=== PATIENT | male | born 1965 | race Caucasian/White ===

== ENCOUNTER 2017-02-21 12:56 | Inpatient (IN) | payer OTHER ==
[~2017-02-21] VITALS: Ht 182.9 cm; Wt 55.8 kg
[~2017-02-21 12:56] MED LIST: ARIP2TAB9 PO; DIVA125T2 GT; GABA-532 PO; TRAZ-144 PO
--- NOTE | 2017-02-21 13:00 | NUR ---
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 BS-[id number], NAD NOTED, VSS, RESP EVEN AND UNLABORED. PT PUT ON MONITOR AND HOSPITAL GOWN. C-COLLAR APPLIED. WAITING FOR MD LYMAN Addendum: 02/21/17 at 1501 by JUAN CARLOS NO C-COLLAR APPLIED
[2017-02-21] MEDS ORDERED: IV NS 0.9% 500 ML BAG IV ONE (13:30)
[2017-02-21 13:41] LABS: BASOPHILS % (AUTO) 0.7 % (0.0-2.0); EOSINOPHILS % (AUTO) 0.1 % (0.0-6.0); HEMATOCRIT 41 % (39-51); HEMOGLOBIN 13.4 g/dL (13.5-17.5); LYMPHOCYTES # (AUTO) 0.3 /CMM (0.8-4.8); MEAN CORPUSCULAR HEMOGLOBIN 30 PG (26.0-33.0); MEAN CORPUSCULAR HGB CONC 33 g/dl (31.0-36.0); MEAN CORPUSCULAR VOLUME 92 fL (80-96); MONOCYTES # (AUTO) 0.2 /CMM (0.1-1.30); MONOCYTES % (AUTO) 9.2 % (2.0-12.0); NEUTROPHILS # (AUTO) 1.7 /CMM (1.8-8.9); PLATELET COUNT (AUTO) 234 /CMM (150-450); RDW COEFFICIENT OF VARIATION 16.9 (11.5-15.0); RED BLOOD CELL COUNT(AUTO) 4.43 MIL/uL (4.5-6.0); WHITE BLOOD COUNT (AUTO) 2.2 K/uL (4.3-11.0)
[2017-02-21 13:55] LABS: CALCIUM, SERUM 8.8 mg/dL (8.5-10.1); CARBON DIOXIDE 28 mmol/L (21-32); CHLORIDE 103 mmol/L (98-107); CREATININE 0.5 mg/dL (0.6-1.3); GLUCOSE 97 mg/dL (74-106); POTASSIUM 3.6 mmol/L (3.5-5.1); SODIUM SERUM 141 mmol/L (136-145); UREA NITROGEN, BLOOD 1 mg/dL (7-18)
[2017-02-21 13:58] LABS: TROPONIN I < 0.017 ng/mL (0.00-0.056)
[2017-02-21 14:06] LABS: ALANINE AMINOTRANSFERASE 18 U/L (12-78); ALBUMIN 3.4 g/dL (3.4-5.0); ALKALINE PHOSPHATASE 67 U/L (46-116); ASPARTATE AMINOTRANSFERASE 22 U/L (15-37); BILIRUBIN,DIRECT 0.1 mg/dL (0.0-0.2); BILIRUBIN,TOTAL 0.3 mg/dL (0.2-1.0); TOTAL PROTEIN, SERUM 6.6 g/dL (6.4-8.2)
[2017-02-21 14:12] LABS: INR 1.07 (0.87-1.13); PROTHROMBIN TIME 11.1 SECS (9.5-12.7)
--- NOTE | 2017-02-21 14:20 | NUR ---
XRAY AT BS
--- NOTE | 2017-02-21 14:28 | NUR ---
PAGED DR ORTIZ
[2017-02-21] MEDS ORDERED: IV NS 0.9% 1,000 ML BAG IV ONE ×2 (14:30→17:00)
[2017-02-21] MEDS ORDERED: LEVOFLOXACIN 750 MG /D5W 150ML 150 ML IV ONE ×2 (14:30→14:34)
[2017-02-21] MEDS ORDERED: IV NS 0.9% 250 ML IV ONE (14:31)
[2017-02-21] MEDS ORDERED: IOHEXOL-350 100 ML VIAL IV ONE (14:31)
[2017-02-21 14:40] LABS: LYMPHOCYTES % (MANUAL) 16 % (16-48); MONOCYTES % (MANUAL) 12 % (0-11.0); NEUTROPHILS % (MANUAL) 72 (42-76)
--- NOTE | 2017-02-21 15:00 | NUR ---
MS RN OPENING NOTES RECEIVED PT FROM ER NURSE IN STABLE CONDITION .PT IS A/O X4. NO SOB OR SIGNS OF DISTRESS NOTED BREATHING IS EVEN AND UNLABORED. PT IS ON RA AND SATING WELL AT 98%. HE DENIES ANY PAIN AT THIS TIME. BELONGINGS VERIFIED BY BEAM DYER RECESSED VAT. PT WAS BE ADMITTED BY DR. ORTIZ FOR POSSIBLE SEPSIS/PNA. WILL BEGIN ADMISSION PROCESS AND AWAIT FOR FURTHER ORDERS FROM THE MD
--- NOTE | 2017-02-21 15:00 | NUR ---
Cuca awan in [facility] - 02/21/17 at 1501 by JUAN CARLOS NO C-COLLAR WAS APPLIED
[2017-02-21] MEDS ORDERED: MORP30TA7 PO (15:44)
[2017-02-21] MEDS ORDERED: TBO-FILGRASTIM 300 MCG/0.5 ML SYRINGE SQ SCH (16:00)
[2017-02-21] MEDS ORDERED: ACETAMINOPHEN 325 MG TABLET PO PRN (17:00)
[2017-02-21] MEDS ORDERED: VANCOMYCIN 1 GM in IV D5W 250 ML IV ONE (17:00)
[2017-02-21] MEDS ORDERED: LORAZEPAM INJ 2 MG/ML VIAL IVP PRN (17:00)
[2017-02-21] MEDS ORDERED: ONDANSETRON HCL/PF 4 MG/2 ML VIAL IVP PRN (17:00)
[2017-02-21 17:04] VITALS: BP 100/64
[2017-02-21] MEDS ORDERED: FEE PK DOSING 1 MIN EA MC ONE (17:38)
--- NOTE | 2017-02-21 19:04 | NUR ---
MS RN NOTES REPORT GIVEN TO SIDNEY FOR NBA PT WAS TRANSFERRED UNDER ACLS PROTOCOL TO ROOM 306. ALL BELONGINGS WERE TAKEN WITH PT.
[2017-02-21 20:00] VITALS: BP 102/71
[2017-02-21] MEDS: MORPHINE SULFATE INJ 2 MG/ML DISP.SYRIN IV PRN (20:50)
[2017-02-21] MEDS: PIPERACILLIN /TAZOBACTAM 3.375 G in IV D5W 50 ML IV SCH (20:54)
[2017-02-22 00:29] VITALS: BP 124/75
[2017-02-22] MEDS: VANCOMYCIN 1 GM in IV D5W 250 ML IV SCH ×3 (02:00→18:18)
[2017-02-22] MEDS: MORPHINE SULFATE INJ 2 MG/ML DISP.SYRIN IV PRN ×5 (02:07→21:35)
[2017-02-22] MEDS: PIPERACILLIN /TAZOBACTAM 3.375 G in IV D5W 50 ML IV SCH ×4 (03:00→17:06)
[2017-02-22 04:00] VITALS: BP 98/57
--- NOTE | 2017-02-22 05:20 | NUR ---
Patient slept thru the night. Changing his own position thru the night. Morphine 2mg for pain given times 2 per his request and effectiv for abd pain. Colostomy is working soft brown mushy stool. Afebrile
[2017-02-22 06:49] VITALS: BP 106/59
[2017-02-22 07:21] LABS: INR 1.08 (0.87-1.13); PROTHROMBIN TIME 11.2 SECS (9.5-12.7)
[2017-02-22 07:26] LABS: ALBUMIN 3.2 g/dL (3.4-5.0); CALCIUM, SERUM 8.8 mg/dL (8.5-10.1); CREATININE 0.6 mg/dL (0.6-1.3); POTASSIUM 3.2 mmol/L (3.5-5.1); TOTAL PROTEIN, SERUM 6.4 g/dL (6.4-8.2)
[2017-02-22 07:31] LABS: CREATINE KINASE MB 0.5 ng/mL (0-3.6)
--- NOTE | 2017-02-22 07:46 | NUR ---
LAST TURNER: INITIAL NOTE RECEIVED PT A/OX4. ON TELE MONITOR WITH SINUS RHYTHM OF 53 BPM. HAS COLOSTOMY. USES URINAL. SKIN INTACT. ON SOFT DIET. RT ARM # 22 HL. NO IV FLUIDS RUNNING. SITE CLEAR AND PATENT. NO PAIN NOTED. NO SOB NOTED. NO DISTRESS NOTED. RESTING COMFORTABLY IN BED. CALL LIGHT WITHIN REACH.
[2017-02-22 08:00] VITALS: BP 119/65
[2017-02-22] MEDS: PANTOPRAZOLE 40 MG VIAL IV SCH (08:28)
--- NOTE | 2017-02-22 08:30 | NUR ---
IV ON R UPPER ARM LEAKING. D/C IV. STARTED IV ON RIGHT FA. SITE CLEAR AND PATENT.
[2017-02-22 08:44] LABS: HEMATOCRIT 43 % (39-51); HEMOGLOBIN 14.1 g/dL (13.5-17.5); LYMPHOCYTES # (AUTO) 0.3 /CMM (0.8-4.8); LYMPHOCYTES % (AUTO) 1.6 % (20.0-44.0); MEAN CORPUSCULAR HEMOGLOBIN 31 PG (26.0-33.0); MEAN CORPUSCULAR HGB CONC 33 g/dl (31.0-36.0); MEAN CORPUSCULAR VOLUME 94 fL (80-96); NEUTROPHILS # (AUTO) 18.1 /CMM (1.8-8.9); NEUTROPHILS % (AUTO) 93.4 % (43.0-81.0); PLATELET COUNT (AUTO) 207 /CMM (150-450); RDW COEFFICIENT OF VARIATION 17.5 (11.5-15.0); RED BLOOD CELL COUNT(AUTO) 4.55 MIL/uL (4.5-6.0)
[2017-02-22 08:59] LABS: WHITE BLOOD COUNT (AUTO) 19.4 K/uL (4.3-11.0)
[2017-02-22] MEDS ORDERED: POTASSIUM CHLORIDE 20 MEQ TAB.PRT.SR PO ONE (11:30)
[2017-02-22] MEDS ORDERED: IV NS 0.9% 500 ML IV ONE (11:30)
[2017-02-22 11:57] LABS: BAND % (MANUAL) 3 % (0.0-5.0); MONOCYTES % (MANUAL) 4 % (0-11.0); NEUTROPHILS % (MANUAL) 93 (42-76)
[2017-02-22] MEDS ORDERED: IV NS 0.9% 250 ML IV ONE (13:56)
[2017-02-22] MEDS ORDERED: IOHEXOL-350 100 ML VIAL IV ONE (13:56)
[2017-02-22] MEDS ORDERED: CT SWABBABLE VALVE TRANS SET 1 EA INFUS.SET MC ONE (13:56)
[2017-02-22] MEDS ORDERED: GADOVERSETAMIDE 5 MMOL/10 ML VIAL IJ ONE (13:59)
[2017-02-22] MEDS ORDERED: GADOVERSETAMIDE 2.5 MMOL/5 ML VIAL IJ ONE (13:59)
[2017-02-22] MEDS: IV NS 0.9% 1,000 ML IV PRN (14:23)
[2017-02-22 16:00] VITALS: BP 103/69
[2017-02-22] MEDS ORDERED: ASPIRIN 325 MG TABLET PO SCH (17:00)
[2017-02-22] MEDS: CLOPIDOGREL BISULFATE 75 MG TABLET PO SCH (17:06)
--- NOTE | 2017-02-22 18:44 | NUR ---
MS RN:CLOSING NOTE PT A/OX4. ON MS. COLOSTOMY IN PLACE, SITE CLEAR. CLEANED AND CHANGED DURING SHIFT. AMBULATORY. SKIN INTACT. ON SOFT DIET. R AC #18 SL. R FA #22 RUNNING NS AT 75ML/HR. SITE CLEAR AND PATENT. NO BLEEDING NOTED. NO REDNESS NOTED. PAIN CONTROLLED WITH PAIN MEDICATIONS. NO DISTRESS NOTED. NO SOB NOTED. NO DIZZINESS NOTED. NO WEAKNESS ON BLE OR BLE NOTED. PERRLA. TOOK ALL MEDICATIONS ON TIME. NO ADVERSE REACTIONS NOTED. RESTING COMFORTABLY IN BED. CALL LIGHT WITHIN REACH.
--- NOTE | 2017-02-22 19:30 | NUR ---
MS RN OPENING NOTES: PATIENT IN BED, AOX4, ON ROOM AIR, BREATHING EVEN AND UNLABORED. APPEARS CALM AND IN NO DISTRESS, BUT DOES COMPLAIN OF THROAT PAIN SCALED AT 9/10. BREATH SOUNDS CLEAR TO AUSCULTATION. PIV OVER RAC G 18 INTACT AND PATENT, INFUSING WELL WITH NS RUNNING AT 75 ML/HR. WITH COLOSTOMY BAG, INTACT, WITH SMALL AMOUNT OF SOFT STOOLS VISIBLE. PROVIDED FOR COMFORT AND SAFETY. BED IN LOWEST AND LOCKED POSITION, SIDERAILS UP X3. CALL LIGHT WITHIN REACH. WILL CONT TO MONITOR.
[2017-02-22 20:00] VITALS: BP 105/74
--- NOTE | 2017-02-22 21:35 | NUR ---
RN NOTES: PATIENT C/O 9/10 PAIN OVER THROAT. ADMINISTERED MORPHINE 2 MG IV PRN. WILL CONT TO MONITOR.
[2017-02-23] MEDS: PIPERACILLIN /TAZOBACTAM 3.375 G in IV D5W 50 ML IV SCH ×5 (00:18→23:33)
[2017-02-23] MEDS: VANCOMYCIN 1 GM in IV D5W 250 ML IV SCH ×2 (01:19→08:41)
[2017-02-23] MEDS: MORPHINE SULFATE INJ 2 MG/ML DISP.SYRIN IV PRN ×5 (04:25→23:34)
--- NOTE | 2017-02-23 07:00 | NUR ---
MS RN CLOSING NOTES: PATIENT IN BED, AOX4, ON ROOM AIR, BREATHING EVEN AND UNLABORED. APPEARS CALM AND IN NO DISTRESS. PIV OVER RAC G 18 INTACT AND PATENT, INFUSING WELL WITH NS RUNNING AT 75 ML/HR. PROVIDED FOR COMFORT AND SAFETY. BED IN LOWEST AND LOCKED POSITION , SIDERAILS UP X3. COLOSTOMY DRAINED, NOTED WITH SOFT, DARK BROWN STOOLS. NO ACUTE CHANGE IN CONDITION THROUGH SHIFT. WILL ENDORSE TO AM RN FOR NBA.
--- NOTE | 2017-02-23 07:05 | NUR ---
RN INITIAL NOTES REPORT RECEIVED AT THE BEDSIDE. PATIENT IS RESTING COMFORTABLY IN BED, NO SOB OR DISTRESS NOTED AT THIS TIME. PATIENT REPORTS PAIN AT THIS TIME. WILL FOLLOW UP WITH PAIN MEDICATIONS WHEN ABLE. BED IN A LOW POSITION, CALL LIGHT WITHIN PATIENT REACH. WILL CONTINUE TO MONITOR.
[2017-02-23 08:00] VITALS: BP 107/71
--- NOTE | 2017-02-23 08:30 | NUR ---
PATIENT IV SITES ARE BOTH INFILTRATED. REMOVED IVS AND APPLIED A WARM CLOTH TO THE SITE. WILL INSERT A NEW IV AND ADMINISTER PAIN MEDICATION REQUESTED.
[2017-02-23] MEDS: PANTOPRAZOLE 40 MG VIAL IV SCH (08:41)
[2017-02-23] MEDS: CLOPIDOGREL BISULFATE 75 MG TABLET PO SCH (08:41)
[2017-02-23 08:59] LABS: EOSINOPHILS % (AUTO) 0.1 % (0.0-6.0); HEMATOCRIT 45 % (39-51); HEMOGLOBIN 14.7 g/dL (13.5-17.5); LYMPHOCYTES # (AUTO) 0.4 /CMM (0.8-4.8); LYMPHOCYTES % (AUTO) 2.3 % (20.0-44.0); MEAN CORPUSCULAR HEMOGLOBIN 30 PG (26.0-33.0); MEAN CORPUSCULAR HGB CONC 33 g/dl (31.0-36.0); MEAN CORPUSCULAR VOLUME 93 fL (80-96); MONOCYTES # (AUTO) 0.6 /CMM (0.1-1.30); NEUTROPHILS % (AUTO) 93.6 % (43.0-81.0); PLATELET COUNT (AUTO) 208 /CMM (150-450); RDW COEFFICIENT OF VARIATION 17.8 (11.5-15.0); RED BLOOD CELL COUNT(AUTO) 4.83 MIL/uL (4.5-6.0)
[2017-02-23 09:09] LABS: CREATININE 1.1 mg/dL (0.6-1.3); POTASSIUM 4.6 mmol/L (3.5-5.1)
--- NOTE | 2017-02-23 10:38 | NUR ---
Social service consult requested by ABHISHEK Avila for homelessness. Pt. is a 51 year old male who was admitted to [facility] for pneumonia. DEBORAH met with pt. bedside. Pt. is alert and oriented x 4. Pt. appeared well groomed and was cooperative with SW during the assessment. Pt. states he has been homeless for the past 7 months since he was diagnosed with cancer. Pt. was residing with a friend prior to that. Pt. states he drinks beer occasionally and smokes marijuana when he is in pain. Pt. receives $895/ month in social security income. Pt. requested to be discharged to [facility]. DEBORAH explained to pt. that SW cannot make the referral to [facility] because [facility] does not have a contract with the [place]. DEBORAH called Lissette at [facility] and confirmed that [facility] has to have a contract with the center in order for them to accept pt. DEBORAH reiterated the information to the pt. Pt. denies suicidal/homicidal ideations and visual/auditory hallucinations at this time. DEBORAH offered pt. referrals to homeless shelters, food resources, [place] [facility] list and medical centers. Pt. stated he will make his own arrangements once he leaves the hospital. No other social service needs are requested at this time. SW is available if needed. DEBORAH updated [facility] NORMA Sandoval regarding pt's discharge plan.
[2017-02-23] MEDS: METRONIDAZOLE 500 MG TABLET PO SCH ×2 (12:13→21:40)
[2017-02-23 16:00] VITALS: BP 110/70
[2017-02-23] MEDS: IV NS 0.9% 1,000 ML IV PRN (17:20)
--- NOTE | 2017-02-23 19:15 | NUR ---
NO SIGNIFICANT CHANGES IN PATIENT CONDITION THROUGHOUT THE SHIFT. NO SOB OR DISTRESS NOTED AT THIS TIME. PATIENT DENIES SIGNIFICANT PAIN. COLOSTOMY BAG CHANGED TODAY. BED IN A LOW POSITION. CALL LIGHT WITHIN PATIENT REACH. ENDORSED TO LIZA ORELLANA, FOR NBA.
--- NOTE | 2017-02-23 19:30 | NUR ---
MS RN OPENING NOTES: PATIENT IN BED, AOX4, ON ROOM AIR, BREATHING EVEN AND UNLABORED. APPEARS CALM AND IN NO DISTRESS, BUT DOES COMPLAIN OF THROAT PAIN SCALED AT 8/10. BREATH SOUNDS CLEAR TO AUSCULTATION. PIV OVER LFA G 22 INTACT AND PATENT, INFUSING WELL WITH NS RUNNING AT 75 ML/HR. WITH COLOSTOMY BAG, INTACT, WITH SMALL AMOUNT OF SOFT STOOLS VISIBLE. PROVIDED FOR COMFORT AND SAFETY. BED IN LOWEST AND LOCKED POSITION, SIDERAILS UP X3. CALL LIGHT WITHIN REACH. WILL CONT TO MONITOR.
[2017-02-23 20:00] VITALS: BP 98/66
[2017-02-24] MEDS: METRONIDAZOLE 500 MG TABLET PO SCH ×2 (04:44→13:25)
[2017-02-24] MEDS: MORPHINE SULFATE INJ 2 MG/ML DISP.SYRIN IV PRN ×3 (04:45→13:26)
[2017-02-24 05:59] LABS: BASOPHILS % (AUTO) 0.2 % (0.0-2.0); EOSINOPHILS # (AUTO) 0.1 /CMM (0.0-0.7); EOSINOPHILS % (AUTO) 0.5 % (0.0-6.0); HEMATOCRIT 46 % (39-51); HEMOGLOBIN 15.1 g/dL (13.5-17.5); LYMPHOCYTES # (AUTO) 0.4 /CMM (0.8-4.8); LYMPHOCYTES % (AUTO) 3.5 % (20.0-44.0); MEAN CORPUSCULAR HEMOGLOBIN 31 PG (26.0-33.0); MEAN CORPUSCULAR HGB CONC 33 g/dl (31.0-36.0); MEAN CORPUSCULAR VOLUME 94 fL (80-96); MONOCYTES # (AUTO) 0.7 /CMM (0.1-1.30); MONOCYTES % (AUTO) 6.6 % (2.0-12.0); NEUTROPHILS # (AUTO) 9.1 /CMM (1.8-8.9); NEUTROPHILS % (AUTO) 89.2 % (43.0-81.0); PLATELET COUNT (AUTO) 187 /CMM (150-450); RDW COEFFICIENT OF VARIATION 17.8 (11.5-15.0); RED BLOOD CELL COUNT(AUTO) 4.89 MIL/uL (4.5-6.0); WHITE BLOOD COUNT (AUTO) 10.2 K/uL (4.3-11.0)
[2017-02-24 06:15] LABS: CALCIUM, SERUM 9.3 mg/dL (8.5-10.1); CREATININE 1.3 mg/dL (0.6-1.3); POTASSIUM 3.5 mmol/L (3.5-5.1)
[2017-02-24] MEDS: PIPERACILLIN /TAZOBACTAM 3.375 G in IV D5W 50 ML IV SCH (06:20)
--- NOTE | 2017-02-24 07:17 | NUR ---
MS RN CLOSING NOTES: PATIENT IN BED, AOX4, ON ROOM AIR, BREATHING EVEN AND UNLABORED. APPEARS CALM AND IN NO DISTRESS. PIV OVER LFA G22 INTACT AND PATENT, INFUSING WELL WITH NS RUNNING AT 75 ML/HR. PROVIDED FOR COMFORT AND SAFETY. BED IN LOWEST AND LOCKED POSITION , SIDERAILS UP X3. NO ACUTE CHANGE IN CONDITION THROUGH SHIFT. WILL ENDORSE TO AM RN FOR NBA.
--- NOTE | 2017-02-24 07:55 | NUR ---
MS RN OPENING NOTE RECEIVED BEDSIDE SBAR REPORT. PATIENT IS A/O X4, FORGETFUL OF SPECIFIC DATES. AMBULATORY WITH ASSIST. PATIENT IS ASLEEP IN BED, EASILY AWAKE. BED IS LOCKED IN LOWEST POSITION, SIDE RAILS UP X2, CALL LIGHT WITHIN REACH. PATIENT EDUCATED TO CALL FOR ASSISTANCE USING THE CALL LIGHT AND VERBALIZED UNDERSTANDING. ALL NEEDS ARE MET AT THIS TIME. NO S/S OF DISTRESS. REPORTS PAIN/-12/21. WILL ADMINISTER PRESCRIBED PRN ANALGESIC ONCE DUE. ALL NEEDS ARE MET AT THIS TIME. WILL CONTINUE TO ASSESS/MONITOR THROUGHOUT THE SHIFT.
[2017-02-24 08:00] VITALS: BP 111/68
[2017-02-24] MEDS ORDERED: LIDOCAINE 2% JEL 5 ML TUBE MC SCH (09:00)
[2017-02-24] MEDS: CLOPIDOGREL BISULFATE 75 MG TABLET PO SCH (09:10)
[2017-02-24] MEDS: PANTOPRAZOLE 40 MG VIAL IV SCH (09:10)
--- NOTE | 2017-02-24 10:37 | NUR ---
MS RN NOTE COLOSTOMY BAG CHANGED. PATIENT TOLERATED PROCEDURE WELL.
--- NOTE | 2017-02-24 11:29 | NUR ---
DEBORAH and major case detective Van met with pt. bedside to discuss discharge plan. Pt. states he will go to the [facility] and will require bus tokens to go to the [facility]. Pt. has the list of [facility] and [facility] areas and will coordinate independently getting to the [facility] area. DEBORAH contacted nursing timekeeping supervisor Sarahi to request two bus tokens for the pt. RN Katheryn to rock [facility] bus tokens and give to pt's RN. Pt. also inquired about dis-enrolling from his HMO and wanting to have straight [employer]. satellite manager Van informed pt. that he will have to call his insurance and dis-enroll from the plan and complete the form they provide and send back to the insurance. Pt. understood. No other social service needs are requested at this time. SW is available, if needed.
--- NOTE | 2017-02-24 13:35 | NUR ---
MS RN NOTE PATIENT COMPLAINT OF ACUTE PAIN. PRN ANALGESIC ADMINISTERED PRESCRIBED
--- NOTE | 2017-02-24 15:15 | NUR ---
MS GEOGRAPHIC INFORMATION SYSTEM SURVEYOR NOTE RECEIVED DISCHARGE ORDER. DISCHARGE EDUCATION PROVIDED VIA TEACH BACK METHOD. DISCHARGE PAPERWORK PROVIDED. ALL BELONGINGS ARE ACCOUNTED TO. VACCINES OFFERED AND DECLINED. DENIES PAIN/ DISCOMFORT AT THIS TIME. IV REMOVED WITH THE CATHETER TIP INTACT. OCLUSIVE DRESSING APPLIED. OSTOMY BAG CHANGED. PICTURE OF THE STOMA TAKEN AND PLACED IN THE CHART. PATIENT IS LEAVING THE UNIT IN STABLE CONDITION.
--- NOTE | 2017-02-24 15:17 | NUR ---
MS RN WOUND CARE NOTE PATIENT LEFT THE UNIT IN STABLE CONDITION.
[2017-02-24] MEDS ORDERED: GUAIFENESIN LA 600 MG TABLET.SA PO SCH (21:00)
== END 2017-02-24 15:40 | disposition home or self-care (01) | DRG 178 ==
LOC: ER 12:58 → MEDSG2 15:24 → TELE 19:21 → MED 02-22 09:07
PROVIDERS: ADMIT Internal Medicine; ATTEND Internal Medicine
DX: J69.0 Pneumonitis due to inhalation of food and vomit (principal); D61.818 Other pancytopenia; C14.0 Malignant neoplasm of pharynx, unspecified; I65.22 Occlusion and stenosis of left carotid artery; D72.829 Elevated white blood cell count, unspecified; E87.6 Hypokalemia; F17.210 Nicotine dependence, cigarettes, uncomplicated; Z92.3 Personal history of irradiation; Z59.0 Homelessness; Z90.49 Acquired absence of other specified parts of digestive tract; Z93.3 Colostomy status; R44.9 Unspecified symptoms and signs involving general sensations and perceptions; R53.1 Weakness; Z79.899 Other long term (current) drug therapy; R91.8 Other nonspecific abnormal finding of lung field
CPT/HCPCS: 36415; 70498-TC; 70553-TC; 71010-TC; 80048-TC; 80053-TC; 80076-TC; 80202-TC; 82272-TC; 82553-TC; 83605-TC; 84484-TC; 85025-TC; 85610-TC; 85730-TC; 86850-TC; 87040-TC; 87045-TC; 87081-TC; 93307-TC; 97116-TC; 97530-TC; A4606; A9579; C9113; J1442; J1956; J2270; J2543; J3370; J7030; J7040; J7050; J7060; Q9967; Z7610

== ENCOUNTER 2017-06-12 14:55 | Emergency (ER) | payer OTHER ==
[~2017-06-12] VITALS: Ht 185.4 cm; Wt 63.5 kg
[~2017-06-12 14:55] MED LIST changes: -ARIP2TAB9 PO; -DIVA125T2 GT; -GABA-532 PO; +MORP30TA7 PO; -TRAZ-144 PO
[2017-06-12 14:58] VITALS: BP 126/85
== END 2017-06-12 15:42 | disposition home or self-care (01) ==
LOC: ER 14:59
DX: Z43.3 Encounter for attention to colostomy (principal); C14.0 Malignant neoplasm of pharynx, unspecified; F17.200 Nicotine dependence, unspecified, uncomplicated; Z79.82 Long term (current) use of aspirin; Z88.8 Allergy status to other drugs, medicaments and biological substances
CPT/HCPCS: A4606; Z7610

== ENCOUNTER 2017-07-10 00:43 | Emergency (ER) | payer OTHER ==
[~2017-07-10] VITALS: Ht 180.3 cm; Wt 70.3 kg
[2017-07-10] MEDS ORDERED: MORPHINE SULFATE INJ 2 MG/ML DISP.SYRIN IV ONE (01:00)
[2017-07-10] MEDS ORDERED: ONDANSETRON HCL/PF 4 MG/2 ML VIAL IV ONE (01:00)
[2017-07-10] MEDS ORDERED: IV NS 0.9% 500 ML BAG IV ONE (01:00)
--- NOTE | 2017-07-10 01:05 | NUR ---
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 PT AAOX4. SKIN WNL. NO S/S OF REDNESS NOTED AROUND COLOSTOMY. PT NOTED TO BE ANGRY AND CURSING DURING ASSESSMENT. PT UNABLE TO GIVE URINE AND STATES "ILL GIVE FUCKING URINE WHEN I WANT, LEAVE ME ALONE". NO S/S OF DISTRESS NOTED. RESP EVEN AND UNLABORED. PT PLACED ON MONITOR AND POX. AWAITING MD FOR EVAL.
[2017-07-10] MEDS ORDERED: ONDANSETRON HCL/PF 4 MG/2 ML VIAL ONE (01:13)
[2017-07-10] MEDS ORDERED: MORPHINE SULFATE INJ 4 MG/ML DISP.SYRIN ONE (01:14)
[2017-07-10 01:36] LABS: BASOPHILS % (AUTO) 0.1 % (0.0-2.0); EOSINOPHILS % (AUTO) 1.1 % (0.0-6.0); HEMATOCRIT 33 % (39-51); HEMOGLOBIN 11.5 g/dL (13.5-17.5); LYMPHOCYTES # (AUTO) 0.5 /CMM (0.8-4.8); LYMPHOCYTES % (AUTO) 10.9 % (20.0-44.0); MEAN CORPUSCULAR HGB CONC 35 g/dl (31.0-36.0); MEAN CORPUSCULAR VOLUME 91 fL (80-96); MONOCYTES # (AUTO) 0.3 /CMM (0.1-1.30); MONOCYTES % (AUTO) 8.1 % (2.0-12.0); NEUTROPHILS # (AUTO) 3.4 /CMM (1.8-8.9); NEUTROPHILS % (AUTO) 79.8 % (43.0-81.0); PLATELET COUNT (AUTO) 210 /CMM (150-450); RDW COEFFICIENT OF VARIATION 13.8 (11.5-15.0); RED BLOOD CELL COUNT(AUTO) 3.64 MIL/uL (4.5-6.0); WHITE BLOOD COUNT (AUTO) 4.3 K/uL (4.3-11.0)
[2017-07-10 01:47] LABS: CARBON DIOXIDE 24 mmol/L (21-32); CHLORIDE 100 mmol/L (98-107); CREATININE 0.6 mg/dL (0.6-1.3); GLUCOSE 82 mg/dL (74-106); POTASSIUM 3.7 mmol/L (3.5-5.1); SODIUM SERUM 135 mmol/L (136-145); UREA NITROGEN, BLOOD 15 mg/dL (7-18)
[2017-07-10 01:52] LABS: ALANINE AMINOTRANSFERASE 31 U/L (12-78); ALBUMIN 3.8 g/dL (3.4-5.0); ALKALINE PHOSPHATASE 59 U/L (46-116); ASPARTATE AMINOTRANSFERASE 29 U/L (15-37); BILIRUBIN,DIRECT 0.1 mg/dL (0.0-0.2); BILIRUBIN,TOTAL 0.4 mg/dL (0.2-1.0); LIPASE 82 U/L (73-393); TOTAL PROTEIN, SERUM 6.9 g/dL (6.4-8.2)
[2017-07-10 01:53] LABS: TROPONIN I < 0.017 ng/mL (0.00-0.056)
[2017-07-10 02:36] VITALS: BP 112/70
--- NOTE | 2017-07-10 02:52 | NUR ---
Patient discharged to home in stable condition. Written and verbal after care instructions given. Patient verbalizes understanding of instruction. VSS UPON DISCHARGE
== END 2017-07-10 02:39 | disposition home or self-care (01) ==
LOC: ER 00:44
DX: R10.9 Unspecified abdominal pain (principal); F10.10 Alcohol abuse, uncomplicated; F17.200 Nicotine dependence, unspecified, uncomplicated; Z88.6 Allergy status to analgesic agent; Z88.8 Allergy status to other drugs, medicaments and biological substances; Z93.3 Colostomy status; Z85.89 Personal history of malignant neoplasm of other organs and systems
CPT/HCPCS: 36415; 80048-TC; 80076-TC; 83690-TC; 84484-TC; 85025-TC; A4606; J2270; J2405; J7040; Z7610

== ENCOUNTER 2018-04-17 18:43 | Emergency (ER) | payer BC, MEDICAID, OTHER ==
[~2018-04-17] VITALS: Ht 182.9 cm; Wt 56.4 kg
[2018-04-17 18:57] VITALS: BP 109/75
--- NOTE | 2018-04-17 19:09 | NUR ---
PT REC'D A FEW COLOSTOMY BAGS AND WAS D/C'D HOME.
== END 2018-04-17 19:10 | disposition home or self-care (01) ==
LOC: ER 18:46
DX: Z43.3 Encounter for attention to colostomy (principal); F32.9 Major depressive disorder, single episode, unspecified; F17.200 Nicotine dependence, unspecified, uncomplicated; Z85.818 Personal history of malignant neoplasm of other sites of lip, oral cavity, and pharynx; Z88.6 Allergy status to analgesic agent; Z88.8 Allergy status to other drugs, medicaments and biological substances; Z60.2 Problems related to living alone